=== PATIENT | female | born 1975 | race Caucasian/White ===

== ENCOUNTER 2018-04-17 21:01 | Emergency (ER) | payer BC ==
[2018-04-17 21:18] VITALS: BP 113/69
[2018-04-17] MEDS ORDERED: predniSONE TAB* 20 MG PO ONE (21:29)
--- NOTE | 2018-04-17 21:35 | UC ---
Cardiac HPI - HPI Summary HPI Summary: Pt c/o of "flare" of ankylosing spondylosis right side rib cage . Pt has hx of and has not had acute flares in last year. - History of Current Complaint Hx Obtained From: Patient Onset/Duration: Sudden Onset, Still Present Timing: Constant Initial Severity: Moderate Current Severity: Moderate Pain Intensity: 4 Chest Pain Location: Right Lateral - right lateral lower ribs 8-10 Aggravating Factor(s): Position Alleviating Factor(s): Rest, Position Related History: Similar Episode/Dx as - ankylosing spondylosis - Risk Factors Pulmonary Embolism Risk Factors: Negative Cardiac Risk Factors: Negative Atrial Fibrillation: Negative TAD Risk Factors: Negative <Violet Dye NP - Last Filed: 04/17/18 21:43> <Wilian Peralta - Last Filed: 04/17/18 22:09> - History of Current Complaint Chief Complaint: UCGeneralIllness Stated Complaint: RIB PAIN Time Seen by Provider: 04/17/18 21:21 - Allergy/Home Medications Allergies/Adverse Reactions: Allergies Allergy/AdvReac Type Severity Reaction Status Date / Time clindamycin Allergy Rash Verified 04/17/18 21:13 erythromycin base Allergy Nausea Verified 04/17/18 21:13 Sulfa (Sulfonamide Allergy Rash Verified 04/17/18 21:13 Antibiotics) enviromental Allergy Eyes Uncoded 10/11/16 12:26 Itchy/Swollen/Red/Watery Home Medications: Home Medications Ibuprofen 800 mg PO Q8HR PRN 04/17/18 [History Confirmed 04/17/18] PMH/Surg Hx/FS Hx/Imm Hx Previously Healthy: Yes - Surgical History Surgical History: Yes Surgery Procedure, Year, and Place: HERNIA SURGERY,[facility] REMOVAL - Family History Known Family History: Positive: Cardiac Disease - Social History Occupation: Employed Full-time Lives: With Family Alcohol Use: None Substance Use Type: None Smoking Status (MU): Never Smoked Tobacco Have You Smoked in the Last Year: No <Violet Dye NP - Last Filed: 04/17/18 21:43> Review of Systems Constitutional: Negative Skin: Negative Eyes: Negative ENT: Negative Respiratory: Negative Cardiovascular: Chest Pain - rib pain Gastrointestinal: Negative Genitourinary: Negative Motor: Decreased ROM - right side ribs Neurovascular: Negative Musculoskeletal: Arthralgia - right side ribs Neurological: Negative Psychological: Negative Is Patient Immunocompromised?: No All Other Systems Reviewed And Are Negative: Yes <Violet Dye NP Last Filed: 04/17/18 21:43> Physical Exam Triage Information Reviewed: Yes Appearance: Pain Distress Vital Signs: Initial Vital Signs Temp 99.3 F 04/17/18 21:12 Pulse 60 04/17/18 21:12 Resp 16 04/17/18 21:12 BP 113/69 04/17/18 21:12 Pulse Ox 99 04/17/18 21:12 Vital Signs Reviewed: Yes Eye Exam: Normal ENT: Positive: Hearing grossly normal Neck exam: Normal Neck: Positive: Supple Respiratory: Positive: No respiratory distress Musculoskeletal: Positive: Strength Limited @, ROM Limited @ - right lateral ribs/rib cage Neurological Exam: Normal Psychological Exam: Normal Skin Exam: Normal <Violet Dye NP Last Filed: 04/17/18 21:43> Vital Signs: Initial Vital Signs Temp 99.3 F 04/17/18 21:12 Pulse 60 04/17/18 21:12 Resp 16 04/17/18 21:12 BP 113/69 04/17/18 21:12 Pulse Ox 99 04/17/18 21:12 <Wilian Peralta - Last Filed: 04/17/18 22:09> - Differential Diagnoses - Chest Pain Differential Diagnosis/HQI/PQRI: Chest Wall, Pulmonary Embolism - Clinical Impression Provider Diagnoses: acute flare of ankylosing spondylosis right lateral rib cage <Violet Dye NP Last Filed: 04/17/18 21:43> Discharge - Sign-Out/Discharge Documenting (check all that apply): Discharge/Admit/Transfer - Billing Disposition and Condition Condition: STABLE Disposition: Home <Violet Dye NP Last Filed: 04/17/18 21:43> - Billing Disposition and Condition Condition: STABLE Disposition: Home <Wilian Peralta - Last Filed: 04/17/18 22:09> - Discharge Plan Condition: Stable Disposition: HOME Prescriptions: predniSONE TAB* [Deltasone 10 MG TAB*] 30 mg PO DAILY #9 tab Patient Education Materials: Ankylosing Spondylitis (ED) Referrals: Terrance Victoria MD [Medical Doctor] - As Soon As Possible Ramon Herbert MD [Primary Care Provider] - If Needed Additional Instructions: Per institutional requirements, I have reviewed the chart, however, I was not consulted specifically or made aware of this patient by the above midlevel provider. I did not personally evaluate, interact with , or disposition this patient.
== END 2018-04-17 21:45 | disposition home or self-care (01) ==
LOC: UCCORT 21:01
DX: M45.9 Ankylosing spondylitis of unspecified sites in spine (principal); Z88.1 Allergy status to other antibiotic agents; Z88.2 Allergy status to sulfonamides
CPT/HCPCS: 99212; G0463; J7512